=== PATIENT | female | born 1990 | race Caucasian/White ===

== ENCOUNTER 2025-05-19 23:17 | Emergency (ER) | payer SELFPAY ==
[~2025-05-19] VITALS: Ht 162.6 cm; Wt 49.9 kg
[2025-05-19 23:18] VITALS: PULSE 72; RESP 18; TEMP 98; O2SAT 99
== END 2025-05-20 01:43 | disposition left against medical advice (07) ==
LOC: ER 23:22
DX: M54.9 Dorsalgia, unspecified (principal); G89.29 Other chronic pain
CPT/HCPCS: 99281